=== PATIENT | male | born 1995 | race African-American/Black ===

== ENCOUNTER 2017-06-24 00:34 | Emergency (ER) | payer SELFPAY ==
[~2017-06-24] VITALS: Ht 180.3 cm; Wt 69.9 kg
[2017-06-24 00:40] VITALS: BP 135/75
--- NOTE | 2017-06-24 00:47 | Emergency Room Report ---
History of Present Illness General Chief Complaint: General Complaint Source: Patient Present Illness HPI Is a 22-year-old transgender female she presents with chief complaint of a Q- tip look. Patient has a history of jaw fracture and her jaw is wired shut. Has been like this for a while now. No new trauma. No complaint now. Denies any other complaint. Allergies: Coded Allergies: CHLORPROMAZINE (Verified Allergy, Unknown, 06/24/17) Patient History Past Medical History: see triage record, old chart reviewed Past Surgical History: other Pertinent Family History: none Social History: Denies: smoking Now: No Immunizations: other Reviewed Nursing Documentation: PMH: Agreed, PSxH: Agreed Nursing Documentation-PMH Past Medical History: No Stated History Review of Systems Eye: Denies: eye pain, blurred vision ENT: Denies: ear pain, nose congestion, throat swelling Respiratory: Denies: cough, shortness of breath Cardiovascular: Denies: chest pain, palpitations Gastrointestinal: Denies: abdominal pain, diarrhea, nausea, vomiting Musculoskeletal: Denies: back pain, joint pain Skin: Denies: rash Neurological: Denies: headache, numbness Endocrine: Denies: increased thirst, increased urine Hematologic/Lymphatic: Denies: easy bruising All Other Systems: negative except mentioned in HPI Physical Exam Vital Signs Date Time Temp Pulse Resp B/P (MAP) Pulse Ox O2 Delivery O2 Flow Rate FiO2 06/24/17 00:36 98.1 117 15 135/75 96 Room Air vitals normal except for tachycardia Sp02 EP Interpretation: reviewed, normal General Appearance: well appearing, no apparent distress, alert Head: normocephalic, atraumatic Eyes: bilateral eye PERRL, bilateral eye EOMI ENT: hearing grossly normal, other - No laceration or trauma to the mouth. Neck: full range of motion, supple, no meningismus Respiratory: chest non-tender, lungs clear, normal breath sounds Cardiovascular #1: regular rate, rhythm, no murmur Gastrointestinal: normal bowel sounds, non tender, no mass, no organomegaly, no bruit, non-distended Musculoskeletal: back normal, gait/station normal, normal range of motion Psychiatric: mood/affect normal Skin: warm/dry Medical Decision Making Diagnostic Impression: Primary Impression: Encounter for medical screening examination ER Course Patient has no complaint here. No new trauma. We'll discharge the police. Last Vital Signs Date Time Temp Pulse Resp B/P (MAP) Pulse Ox O2 Delivery O2 Flow Rate FiO2 06/24/17 00:36 98.1 117 15 135/75 96 Room Air Status: unchanged Disposition: D/C TO LAW ENFORCEMENT IN [facility] Condition: Stable Additional Instructions: Abstain from drugs and alcohol. Followup with your Dr. in 7 days as needed. Return if worse. JUSTIN NAVARRETE M.D. Jun 24, 2017 00:47
[2017-06-24 00:48] VITALS: BP 135/75
== END 2017-06-24 00:50 ==
LOC: EDBD 00:34 → EDSEX 00:34 → EMR 00:50
DX: Z02.89 Encounter for other administrative examinations (principal)
CPT/HCPCS: 99283

== ENCOUNTER 2017-06-27 00:22 | Emergency (ER) | payer SELFPAY ==
[~2017-06-27] VITALS: Ht 180.3 cm; Wt 74.4 kg
[2017-06-27 00:26] VITALS: BP 135/91
--- NOTE | 2017-06-27 00:56 | Emergency Room Report ---
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 She was discharged and release by police. She is now rested again secondary to . Patient had a history of jaw fracture and has wired. Coming complaining of jaw pain. No new trauma. Denies any other complaint. Not suicidal or homicidal. Allergies: Coded Allergies: CHLORPROMAZINE (Verified Allergy, Unknown, 06/24/17) Nursing Documentation-[facility] Past Medical History: No Stated History Review of Systems Eye: Denies: eye pain, blurred vision ENT: Denies: ear pain, nose congestion, throat swelling Respiratory: Denies: cough, shortness of breath Cardiovascular: Denies: chest pain, palpitations Gastrointestinal: Denies: abdominal pain, diarrhea, nausea, vomiting Musculoskeletal: Denies: back pain, joint pain Skin: Denies: rash Neurological: Denies: headache, numbness Endocrine: Denies: increased thirst, increased urine Hematologic/Lymphatic: Denies: easy bruising All Other Systems: negative except mentioned in HPI Physical Exam Vital Signs Date Time Temp Pulse Resp B/P (MAP) Pulse Ox O2 Delivery O2 Flow Rate FiO2 06/27/17 00:23 97.5 77 16 135/91 98 Room Air vitals normal Sp02 EP Interpretation: reviewed, normal General Appearance: well appearing, no apparent distress, alert Head: normocephalic, atraumatic Eyes: bilateral eye PERRL, bilateral eye EOMI ENT: hearing grossly normal, other - Jaw wired shut Neck: full range of motion, supple, no meningismus Respiratory: chest non-tender, lungs clear, normal breath sounds Cardiovascular #1: regular rate, rhythm, no murmur Gastrointestinal: normal bowel sounds, non tender, no mass, no organomegaly, no bruit, non-distended Musculoskeletal: back normal, gait/station normal, normal range of motion Psychiatric: mood/affect normal Skin: warm/dry Medical Decision Making Diagnostic Impression: Primary Impression: Jaw pain ER Course patient here for medical clearance. No new issues. We'll discharge to police. Last Vital Signs Date Time Temp Pulse Resp B/P (MAP) Pulse Ox O2 Delivery O2 Flow Rate FiO2 06/27/17 00:26 97.5 77 16 135/91 98 Room Air Status: improved Disposition: D/C TO LAW ENFORCEMENT IN [facility] Condition: Stable Additional Instructions: Abstain from drugs and alcohol. Followup with your Dr. in 2-3 days. Return if worse. JUSTIN NAVARRETE M.D. Jun 27, 2017 00:56
[2017-06-27 01:01] VITALS: BP 125/88
== END 2017-06-27 01:01 | disposition home or self-care (01) ==
LOC: EMR 00:37
DX: R68.84 Jaw pain (principal); Z88.8 Allergy status to other drugs, medicaments and biological substances; Z02.89 Encounter for other administrative examinations
CPT/HCPCS: 99283